=== PATIENT | male | born 1950 | race African-American/Black ===

== ENCOUNTER 2018-09-26 18:19 | Inpatient (IN) | payer SELFPAY ==
[~2018-09-26] VITALS: Ht 180.3 cm; Wt 93.1 kg
[2018-09-26] MEDS ORDERED: NITROGLYCERIN OINT 1GM/INCH UDPKT TD ONE (21:30)
[2018-09-26] MEDS ORDERED: ASPIRIN 325MG EC TABLET PO ONE (21:30)
[2018-09-26] MEDS ORDERED: SODIUM CHLORIDE 0.9% 1,000 ML IV ONE (23:21)
[2018-09-26 23:27] LABS: BASOPHILS % 0.9 % (0.0-2.0); EOSINOPHILS % 3.9 % (0.0-5.0); HEMATOCRIT. 40.2 % (42.0-52.0); HEMOGLOBIN. 13.3 g/dL (14.0-18.0); LYMPHOCYTES % 20.8 % (20.0-50.0); MEAN CORPUSCULAR HEMOGLOBIN 28.8 pg (28.0-32.0); MEAN PLATELET VOLUME 8.1 fl (7.4-10.4); MONOCYTES % 9.2 % (2.0-8.0); NEUTROPHILS % 65.2 % (40.0-76.0); PLATELET 194 x1000/uL (130-400); RED BLOOD CELL COUNT 4.62 mill/uL (4.7-6.1); RED CELL DISTRIBUTION WIDTH 14.1 % (11.6-14.6)
[2018-09-26 23:31] LABS: CHLORIDE 108 mEq/L (98-107)
[2018-09-26 23:36] LABS: ETHANOL BLOOD < 10 mg/dL
[2018-09-27 01:01] LABS: PROTHROMBIN TIME 10.1 sec (9.6-11.0)
[2018-09-27 02:20] VITALS: BP 110/62
[2018-09-27 02:45] VITALS: BP 110/62
[2018-09-27] MEDS ORDERED: HYDROCODONE/ACETAMINOPHEN 10/325MG TABLET PO PRN (05:15)
[2018-09-27] MEDS ORDERED: ENOXAPARIN 100MG/ML SYR SUBCUT SCH (06:00)
[2018-09-27] MEDS ORDERED: ASPIRIN 81MG TABLET PO SCH (09:00)
[2018-09-27 10:11] LABS: LDL CHOLESTEROL 128 mg/dL (5-100)
[2018-09-27 10:12] LABS: CREATINE KINASE 353 IU/L (39-308)
[2018-09-27 10:14] LABS: HDL CHOLESTEROL 38 mg/dL (40-59)
[2018-09-27 10:15] LABS: CREATINE KINASE MB FRACTION 5.1 ng/mL (0.5-3.6)
== END 2018-09-27 10:30 | disposition left against medical advice (07) | DRG 198 ==
LOC: ER 18:19 → 6WST 23:55 → EDBEDREQTM 23:57 → EDBEDREQ 23:57 → ENRESERV 09-27 01:41
PROVIDERS: ADMIT Internal Medicine; ATTEND Internal Medicine
DX: I24.9 Acute ischemic heart disease, unspecified (principal); R00.1 Bradycardia, unspecified; Z53.21 Procedure and treatment not carried out due to patient leaving prior to being seen by health care provider
CPT/HCPCS: 36415; 71045; 78582; 80061; 80320; 82550; 82553; 83880; 84484; 93005; 96360; 99285; A9558; J7030; G0480